=== PATIENT | male | born 1945 | race Caucasian/White ===

== ENCOUNTER 2020-06-01 14:16 | Emergency (ER) | payer OTHER ==
--- OUTSIDE RECORDS SUMMARY | 2020-06-01 14:18 | XMS REPORT | Clinical Summary ---
:1945 Author Organization [facility] Address [address] [place] [address] Care Team Providers Name Role Phone Provider, Unknown Primary Care Provider Unavailable Allergies No Known Allergies Medications Medication Sig Dispensed Refills Start Date End Date Status multivit with 0 Active minerals/lutein (MULTIVITAMIN 50 PLUS ORAL) hydroCHLOROthiazide Take 12.5 mg 0 12/07/2018 Active (MICROZIDE) 12.5 mg capsule by mouth. L. acidophilus-L. rhamnosus 0 Active (PROBIOTIC) 15 billion cell capsule carvedilol (COREG) 6.25 MG 6.25 mg 2 0 01/01/2019 Active tablet (two) times a day with meals. amLODIPine (NORVASC) 10 mg Take 10 mg by 0 Active tablet mouth daily. aspirin (ECOTRIN) 81 MG Take 81 mg by 0 Active enteric coated tablet mouth daily. psyllium husk (METAMUCIL Take by mouth 0 Active ORAL) daily. Active Problems Problem Noted Date Benign localized hyperplasia of prostate with urinary retention 03/26/2019 Encounters Date Type Specialty Care Team Description 08/12/2019 Telephone Urology Giovany Ceballos MD 08/08/2019 Office Visit Urology Giovany Ceballos MD Benign lo calized hyperplasia of prostate with u rinary retention (Primary Dx) after 06/01/2019 Family History Relation Name Status Comments Father Alive Mother Alive Social History Tobacco Use Types Packs/Day Years Used Date Former Smoker Cigarettes Quit: 1979 Smokeless Tobacco: Never Used Alcohol Use Drinks/Week oz/Week Comments Not Currently Sex Assigned at Date Recorded Not on file Job Start Date Occupation Industry Not on file Not on file Not on file Travel History Travel Start Travel End No recent travel history available. Last Filed Vital Signs Not on file Plan of Treatment Health Maintenance Due Date Last Done Comments COLONOSCOPY SCREENING 1996 SHINGLES VACCINES (#1) 1996 65+ PNEUMOCOCCAL VACCINE (1 of 2 - PCV13) 2011 INFLUENZA VACCINE 06/18/2020 07/03/2019 Implants Implanted Type Area Diamond Setter Device Shelf Model / Identifier Expiration Serial / Date Lot Tissue Matrix Placental Liquid Cryomatrix Size 2.0cc - Log21 Human Bilateral: 10/02/2023 [id number] / Implanted: Qty: 1 on 03/26/2019 by Giovany Ceballos MD at [facility] Tissue Pelvis / Implants [id number] Clip Ligtng Hem-O-Katherine Endoscpc Aplr Ply Lg - [id number] Medica l Bilateral: WECK CLOSURE [id number] / Implanted: 03/26/2019 at [facility] (Quantity not on file) Cli ps for Abdomen, SYSTEMS / Internal Lower Use Quadrant Clip Ligtng Hem-O-Katherine Endoscpc Aplr Ply Lg - [id number] Medica l Bilateral: WECK CLOSURE [id number] / Implanted: 03/26/2019 at [facility] (Quantity not on file) Cli ps for Abdomen, SYSTEMS / Internal Lower Use Quadrant Procedures Procedure Name Priority Date/Time Associated Diagnosis Comme nts PSA, TOTAL AND FREE Routine 08/08/2019 10:43 Benign localized Results for this AM 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 TESTOSTERONE LEVEL, Routine 08/08/2019 10:43 Benign localized Results for this FREE AND TOTAL, MALE AM POST TENSIONING IRONWORKER HELPER hyperplasia of proce dure are in prostate with the results urinary retention section. POC UROFLOWMETRY Routine 08/08/2019 10:12 Benign localized Res ults for this AM 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 [id number] Routine 08/08/2019 10:12 Benign localized Results for this AM 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 after 06/01/2019 Results Testosterone level, free and total, male (08/08/2019 10:43 AM POST TENSIONING IRONWORKER HELPER) Testosterone 412 264 - 916 [facility] Comment: ng/dL Adult male reference interval is based on a population of healthy nonobese males (BMI <30) between 19 and 39 yea rs old. Molly et.al. JCEM 2017,102;6304-9399. PMID: 782269 03. Testosterone, free 4.0 (L) 6.6 - 18.1 [facility] 02 pg/mL Specimen Blood Narrative Performed At [facility]formed at[facility] [place], [place] [address] 143 Page Makeup System Operator: Shai Phan MD, Phone: [phone] Performed at: 02 - Lab[address] [id number] Page Makeup System Operator: Ron Arevalo MD, Phone: [phone] Performing Organization Address City/State/Zipcode Phone Number [facility] 02 PSA, total and free (08/08/2019 10:43 AM POST TENSIONING IRONWORKER HELPER) PSA 0.7 0.0 - 4.0 [facility] Comment: ng/mL Rudolph ECLIA methodology. According to the [employer], Seru m PSA should decrease and remain at undetectable levels after radic al prostatectomy. The AUA defines biochemical recurrence as an initial PSA value 0.2 ng/mL or greater followed by a subsequen t confirmatory PSA value 0.2 ng/mL or greater. Values obtained with different assay methods or kits c annot be used interchangeably. Results cannot be interpreted as abso lute evidence of the presence or absence of malignant disease. PSA, free 0.23Comment: Rudolph N/A ng/mL [facility] ECLIA methodology. PSA, free percent 32.9 % [facility] Comment: The table below lists the probability of prostate canc er for men with non-suspicious YIFAN results and total PSA betw een 4 and 10 ng/mL, by patient age (Jamie et al, NIDHI 1 998, 279:1542). % Free PSA 50-64 y r 65-75 yr 0.00-10.00% 56% 55% 10.01-15.00% 24% 35% 15.01-20.00% 17% 23% 20.01-25.00% 10% 20% >25.00% 5% 9% Please note: Jamie et al did not make specific recommendations regarding the use of percent free PSA for any other po pulation of men. Specimen Blood Narrative Performed At [facility]formed at: [facility] [place], [place] [address] 143 Page Makeup System Operator: Shai Phan MD, Phone: [phone] Performing Organization Address City/State/Zipcode Phone Number [facility] POC BLADDER SCAN/PVR (08/08/2019 10:12 AM POST TENSIONING IRONWORKER HELPER) Pathologist Sig nature Volume 122ml Specimen Urine POC uroflowmetry (08/08/2019 10:12 AM POST TENSIONING IRONWORKER HELPER) Pathologist Sig nature Flow rate 41sec ml/sec Specimen Urine Narrative Performed At [facility] Flow: 22 ml/s Mean Flow: 9 ml/s Voiding Time: 41 sec Flow Time: 41 sec Time to Max Flow: 10 sec Voided Volume: 374 ml after 06/01/2019 Advance Directives For more information, please contact: [phone] Type Date Recorded 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
[2020-06-01] MEDS ORDERED: TETANUS & DIPHTHERIA TOX,ADULT 0.5 ML VIAL ONE (15:44)
[2020-06-01] MEDS ORDERED: LIDOCAINE 1% MPF 30 ML VIAL ONE (15:57)
--- NOTE | 2020-06-01 15:59 | RAD REPORT ---
EXAM DESCRIPTION: RAD - Hand Left 3 View - 06/01/2020 3:36 pm CLINICAL HISTORY: table saw injury Trauma, laceration COMPARISON: Hand Left 3 View dated 11/05/2015 FINDINGS: There is no fracture seen. No radiopaque foreign body is identified.
--- NOTE | 2020-06-01 16:20 | ER ---
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 Bleeding controlled. Coronavirus screen: Client denies travel out of the [place] in the last 14 days. At this time, the client does not indicate any symptoms associated with coronavirus-19. Ebola Screen: Patient negative for fever greater than or equal to 101.5 degrees Fahrenheit, and additional compatible Ebola Virus Disease symptoms Patient denies exposure to infectious person. Patient denies travel to an Ebola-affected area in the 21 days before illness onset. No symptoms or risks identified at this time. Complicating Factors: There are no complicating factors for this patient. Initial Sepsis Screen: Does the patient meet any 2 criteria? No. Patient's initial sepsis screen is negative. Does the patient have a suspected source of infection? No. Patient's initial sepsis screen is negative. Risk Assessment: Do you want to hurt yourself or someone else? Patient reports no desire to harm self or others. Onset of symptoms was June 01, 2020. 14:46 Method Of Arrival: Ambulatory ca1 14:46 Acuity: MARICRUZ 4 ca1 Historical: - Allergies: 14:48 No Known Allergies; ca1 - PMHx: 14:48 Hypertension; ca1 - PSHx: 14:48 Cholecystectomy; ca1 - Immunization history:: Adult Immunizations up to date, Last tetanus immunization: unknown. - Social history:: Smoking status: Patient denies any tobacco usage or history of. Screenin:05 Abuse screen: Denies threats or abuse. Nutritional screening: No deficits noted. em Tuberculosis screening: No symptoms or risk factors identified. Fall Risk None identified. Assessment: 15:05 General: Appears in no apparent distress. comfortable, Behavior is calm, cooperative, em appropriate for age. Pain: Complains of pain in palmar aspect of middle phalanx of left middle finger, palmar aspect of proximal phalanx of left index finger and palmar aspect of proximal phalanx of left thumb Pain currently is 3 out of 10 on a pain scale. Neuro: Level of Consciousness is awake, alert, obeys commands, Oriented to person, place, time, situation, Appropriate for age. Cardiovascular: Capillary refill < 3 seconds Patient's skin is warm and dry. Respiratory: Airway is patent Respiratory effort is even, unlabored, Respiratory pattern is regular, symmetrical. Derm: Skin is intact, is healthy with good turgor, Skin is pink, warm \T\ dry. Musculoskeletal: Capillary refill < 3 seconds. Injury Description: Laceration sustained to palmar aspect of middle phalanx of left middle finger, palmar aspect of proximal phalanx of left index finger and palmar aspect of proximal phalanx of left thumb is jagged, 2.6 to 7.5 cm long, bleeding moderately, was sustained 30-60 minutes ago. is bleeding a small amount. Vital Signs: 14:46 BP 124 / 79; Pulse 64; Resp 15 S; Temp 98.5(TE); Pulse Ox 97% on R/A; Weight 84.82 kg ca1 (R); Height 6 ft. 0 in. (182.88 cm) (R); 14:46 Body Mass Index 25.36 (84.82 kg, 182.88 cm) ca1 ED Course: 14:17 Patient arrived in ED. ag5 14:17 Mariana Palacio MD is Private Physician. ag5 14:47 Triage completed. ca1 14:48 Arm band placed on right wrist. ca1 15:05 Patient has correct armband on for positive identification. Bed in low position. Call em light in reach. Pulse ox on. NIBP on. 15:08 Severiano Edmonds, VICKI is Primary Nurse. em 15:31 Thomas Hodges PA is PHCP. jr8 15:31 Bhavesh Byrd MD is Attending Physician. jr8 15:36 Hand Left 3 View XRAY In Process Unspecified. EDMS 16:10 Assist provider with laceration repair on palmar aspect of proximal phalanx of left em index finger and palmar aspect of middle phalanx of left middle finger that was between 2.6 to 7.5 cm using sutures. Set up tray. Performed by Thomas WARD Dressed with 4X4s, Kerlix, Neosporin, Patient tolerated well. 16:19 Markie Funes MD is Referral Physician. jr8 16:30 Patient did not have IV access during this emergency room visit. em Administered Medications: 15:38 Drug: Tetanus-Diphtheria Toxoid Adult 0.5 ml {Tree Puller: Cardiovascular Simulation. Exp: em 11/10/2022. Lot #: [id number]. } Route: IM; Site: right deltoid; 16:29 Follow up: Response: No adverse reaction em Outcome: 16:20 Discharge ordered by . jr8 16:30 Discharged to home ambulatory. em 16:30 Condition: good 16:30 Discharge instructions given to patient, Instructed on discharge instructions, follow up and referral plans. medication usage, wound care, Demonstrated understanding of instructions, follow-up care, medications, wound care, Prescriptions given X 1. 16:31 Patient left the ED. em Signatures: Dispatcher [employer] Severiano Ewing RN RN em Roszak, Josh, PA PA 8 Merary Cruz RN RN [facility]
--- NOTE | 2020-06-01 16:20 | EDPHYS ---
Physician Documentation [facility] Name: Ryamon Petty Jr Age: 74 yrs Sex: Male : 1945 Arrival Date: 06/01/2020 Time: 14:17 Bed 25 Private MD: Mariana Palacio C ED Physician Bhavesh Byrd HPI: 06/01 16:23 This 74 yrs old Male presents to ER via Ambulatory with complaints of jr8 Laceration To Hand. 16:23 The patient has a laceration related to: working, occurred at home. The laceration(s) jr8 is(are) located on the left hand. Onset: The symptoms/episode began/occurred acutely, today. Associated signs and symptoms: The patient has no apparent associated signs or symptoms. The patient has experienced a previous episode. The patient has not recently seen a physician. Patient stated that he was using table saw. Kicked back and caused multiple lacerations to left hand . Historical: - Allergies: 14:48 No Known Allergies; ca1 - PMHx: 14:48 Hypertension; ca1 - PSHx: 14:48 Cholecystectomy; ca1 - Immunization history:: Adult Immunizations up to date, Last tetanus immunization: unknown. - Social history:: Smoking status: Patient denies any tobacco usage or history of. ROS: 16:23 Eyes: Negative for injury, pain, redness, and discharge, ENT: Negative for injury, jr8 pain, and discharge, Neck: Negative for injury, pain, and swelling, Cardiovascular: Negative for chest pain, palpitations, and edema, Respiratory: Negative for shortness of breath, cough, wheezing, and pleuritic chest pain, Abdomen/GI: Negative for abdominal pain, nausea, vomiting, diarrhea, and constipation, Back: Negative for injury and pain, MS/Extremity: Negative for injury and deformity, Neuro: Negative for headache, weakness, numbness, tingling, and seizure. 16:23 Skin: Positive for laceration(s). Exam: 16:23 Constitutional: This is a well developed, well nourished patient who is awake, alert, jr8 and in no acute distress. Cardiovascular: Regular rate and rhythm with a normal S1 and S2. No gallops, murmurs, or rubs. Normal PMI, no JVD. No pulse deficits. Respiratory: Lungs have equal breath sounds bilaterally, clear to auscultation and percussion. No rales, rhonchi or wheezes noted. No increased work of breathing, no retractions or nasal flaring. Skin: Warm, dry with normal turgor. Normal color with no rashes, no lesions, and no evidence of cellulitis. Neuro: Awake and alert, GCS 15, oriented to person, place, time, and situation. Cranial nerves II-XII grossly intact. Motor strength 5/5 in all extremities. Sensory grossly intact. Cerebellar exam normal. Normal gait. 16:23 Musculoskeletal/extremity: Extremities: grossly normal except: noted in the palmar aspect of proximal phalanx of left thumb: approximately 3 cm laceration noted to pad of left thumb. Irregular with skin flap. Both superficial and deep components noted , noted in the palmar aspect of middle phalanx of left middle finger: approximately 3 cm laceration noted to pad of left middle finger alan aspect. Irregular with skin flap. Both superficial and deep components noted , noted in the palmar aspect of proximal phalanx of left index finger: skin tear and superficial laceration noted to the alan aspect of index finger , ROM: intact in all extremities, full active range of motion, full passive range of motion, Circulation is intact in all extremities. Sensation intact. Vital Signs: 14:46 BP 124 / 79; Pulse 64; Resp 15 S; Temp 98.5(TE); Pulse Ox 97% on R/A; Weight 84.82 kg ca1 (R); Height 6 ft. 0 in. (182.88 cm) (R); 14:46 Body Mass Index 25.36 (84.82 kg, 182.88 cm) ca1 Laceration: 16:21 Wound Repair of 3cm ( 1.2in ) subcutaneous laceration to palmar aspect of proximal jr8 phalanx of left thumb. Irregularly shaped.. Skin/tissue flap noted.. Minimal bleeding noted.. Distal neuro/vascular/tendon intact. Anesthesia: Local anesthetic administered with 1 mls of 1% lidocaine. Wound prep: Extensive cleansing with betadine, Wound irrigation with saline, Wound explored extensively. Skin closed with 3 4-0 Prolene using interrupted sutures and sterile technique. Patient tolerated well. 16:21 Wound Repair of 3cm ( 1.2in ) subcutaneous laceration to palmar aspect of middle jr8 phalanx of left middle finger. Irregularly shaped.. Skin/tissue flap noted.. Minimal bleeding noted.. Distal neuro/vascular/tendon intact. Anesthesia: Local anesthetic administered with 2 mls of 1% lidocaine. Wound prep: Extensive cleansing with betadine, Wound irrigation with saline, Wound explored extensively. Skin closed with 3 4-0 Prolene using interrupted sutures and sterile technique. Patient tolerated well. MDM: 15:31 Patient medically screened. jr8 16:18 Data reviewed: vital signs, nurses notes, radiologic studies, plain films, and as a jr8 result, I will discharge patient. Data interpreted: Pulse oximetry: on room air is 97 %. Interpretation: normal. Counseling: I had a detailed discussion with the patient and/or guardian regarding: the historical points, exam findings, and any diagnostic results supporting the discharge/admit diagnosis, radiology results, the need for outpatient follow up, a hand specialist, to return to the emergency department if symptoms worsen or persist or if there are any questions or concerns that arise at home. 06/01 15:10 Order name: Hand Left 3 View XRAY; Complete Time: 16:18 em Administered Medications: 15:38 Drug: Tetanus-Diphtheria Toxoid Adult 0.5 ml {Fractionating Still Operator: SmallRivers. Exp: em 11/10/2022. Lot #: [id number]. } Route: IM; Site: right deltoid; 16:29 Follow up: Response: No adverse reaction em Disposition: 06/02 08:22 Co-signature as Attending Physician, Bhavesh Byrd MD I agree with the assessment and nga plan of care. Disposition: 06/01/20 16:20 Discharged to Home. Impression: Laceration without foreign body of finger without damage to nail. - Condition is Stable. - Discharge Instructions: Laceration Care, Adult. - Prescriptions for Keflex 500 mg Oral Capsule - take 1 capsule by ORAL route every 6 hours for 7 days; 28 capsule. - Medication Reconciliation Form, Thank You Letter, Antibiotic Education, Prescription Opioid Use form. - Follow up: Markie Funes MD; When: 2 - 3 days; Reason: Wound Recheck, Recheck today's complaints, Continuance of care, Re-evaluation by your physician. - Problem is new. - Symptoms have improved. Signatures: Dispatcher [employer] Bhavesh Magana MD MD cha Munoz, Edgar, RN RN em Thomas Hodges PA PA jr8 Merary Cruz RN RN ca1 Corrections: (The following items were deleted from the chart) 06/01 16:31 16:20 06/01/2020 16:20 Discharged to Home. Impression: Laceration without foreign body em of finger without damage to nail. Condition is Stable. Forms are Medication Reconciliation Form, Thank You Letter, Antibiotic Education, Prescription Opioid Use. Follow up: Markie Funes; When: 2 - 3 days; Reason: Wound Recheck, Recheck today's complaints, Continuance of care, Re-evaluation by your physician. Problem is new. Symptoms have improved. jr8
[2020-06-01 16:45] VITALS: BP 124/79; TEMP 98.5; O2SAT 97
== END 2020-06-01 16:31 | disposition home or self-care (01) ==
LOC: ER 14:16
PROC: 0JQK0ZZ Repair Left Hand Subcutaneous Tissue and Fascia, Open Approach (ICD-10-PCS; principal; 2020-06-01)
DX: S61.213A Laceration without foreign body of left middle finger without damage to nail, initial encounter (principal); W31.2XXA Contact with powered woodworking and forming machines, initial encounter; Y93.89 Activity, other specified; Y92.009 Unspecified place in unspecified non-institutional (private) residence as the place of occurrence of the external cause; Z23 Encounter for immunization; I10 Essential (primary) hypertension
CPT/HCPCS: 90471; 90714; 99284

== ENCOUNTER 2020-06-04 08:25 | Day surgery (SDC) | payer OTHER ==
[2020-06-04 08:13] LABS: Absolute Lymphocytes (CBC) 0.7 K/uL (0.7-4.9); Basophils % 0.4 % (0-1.3); Hematocrit 39.6 % (39.6-49.0); Lymphocytes % 17.7 % (15.3-44.8); MPV 9.1 fL (7.6-11.3); RBC Red Blood Cell Count 4.15 M/uL (4.33-5.43)
[2020-06-04] MEDS ORDERED: Ringers Lactate 1,000 ML IV ONE (08:50)
[2020-06-04] MEDS ORDERED: CEFAZOLIN/SWI 1gm 1 GM/10 ML SYR ONE (08:51)
--- NOTE | 2020-06-04 08:52 | RAD REPORT ---
EXAM DESCRIPTION: RAD - Chest Pa And Lat (2 Views) - 06/04/2020 8:30 am CLINICAL HISTORY: preop Chest pain. COMPARISON: No comparisons FINDINGS: The lungs are clear. The heart is normal in size. No displaced fractures. IMPRESSION: No acute or concerning finding suspected.
[2020-06-04 08:58] VITALS: O2SAT 100
[2020-06-04] MEDS ORDERED: propofoL 200 MG/20 ML VIAL IV ONE (09:24)
[2020-06-04] MEDS ORDERED: FENTANYL CITR 100 MCG/2 ML ONE ×2 (09:24→10:14)
[2020-06-04] MEDS ORDERED: LIDOCAINE 2% MPF 5 ML VIAL ONE (09:25)
[2020-06-04] MEDS ORDERED: ONDANSETRON 4 MG/2 ML VIAL ONE ×2 (09:25→11:11)
--- OUTSIDE RECORDS SUMMARY | 2020-06-04 09:25 | XMS REPORT | Clinical Summary ---
:1945 Author Organization [facility] Address [address] [place] [address] Care Team Providers Name Role Phone Provider, [...] with u rinary retention (Primary Dx) after 06/04/2019 Family History Relation Name Status Comments Father [...] of 2 - PCV13) 2011 INFLUENZA VACCINE 05/19/2020 07/03/2019 Implants Implanted Type Area Software Engineering Specialist Device Shelf Model / Identifier Expiration Serial / Date Lot Tissue Matrix Placental Liquid Cryomatrix Size 2.0cc - [id number] Human Bilateral: 10/02/2023 [id number] / Implanted: Qty: 1 on 03/26/2019 by Giovany Ceballos MD at [facility] Tissue Pelvis / Implants [id number] Clip Ligtng Hem-O-Katherine Endoscpc Aplr Ply Lg - [id number] Medica l Bilateral: WECK CLOSURE [id number] / Implanted: 03/26/2019 at [facility] (Quantity not on file) Cli ps for Abdomen, SYSTEMS / Internal Lower Use Quadrant Clip Ligtng Hem-O-Katherine Endoscpc Aplr Ply Lg - [id number] Medica l Bilateral: WECK CLOSURE [id number] / Implanted: 03/26/2019 at [facility] (Quantity not on file) Cli ps for Abdomen, SYSTEMS / Internal Lower Use Quadrant Procedures Procedure Name Priority Date/Time Associated Diagnosis Comme nts PSA, TOTAL AND FREE Routine 08/08/2019 10:43 Benign localized Results for this AM ZIPPER TRIMMER hyperplasia of procedure are in prostate with the results urinary retention section. TESTOSTERONE LEVEL, Routine 08/08/2019 10:43 Benign localized Results for this FREE AND TOTAL, MALE AM ZIPPER TRIMMER hyperplasia of proce dure are in prostate with the results urinary retention section. POC UROFLOWMETRY Routine 08/08/2019 10:12 Benign localized Res ults for this AM ZIPPER TRIMMER hyperplasia of procedure are in prostate with the results urinary retention section. [id number] Routine 08/08/2019 10:12 Benign localized Results for this AM ZIPPER TRIMMER hyperplasia of procedure are in prostate with the results urinary retention section. after 06/04/2019 Results Testosterone level, free and total, male (08/08/2019 10:43 AM ZIPPER TRIMMER) Testosterone 412 264 - 916 [facility] Comment: ng/dL Adult male reference interval is based on a population of healthy nonobese males (BMI <30) between 19 and 39 yea rs old. Molly et.al. JCEM 2017,102;5018-6304. PMID: 258764 03. Testosterone, free 4.0 (L) 6.6 - 18.1 [facility] 02 pg/mL Specimen Blood Narrative Performed At [facility]: [facility] [place], [place] [address] 143 Power Shear Operator: Shai Phan MD, Phone: [phone] Performed at: 02 - Lab[address] [id number] 361 Power Shear Operator: Ron Arevalo MD, Phone: [phone] Performing Organization Address City/State/Zipcode Phone Number [facility] 02 PSA, total and free (08/08/2019 10:43 AM ZIPPER TRIMMER) PSA 0.7 0.0 - 4.0 [facility] Comment: ng/mL Rudolph ECLIA methodology. According to the [place] [employer], Seru m PSA should decrease [...] Blood Narrative Performed At [facility]formed at: [facility] [place], [place] [address] 143 Power Shear Operator: Shai Phan MD, Phone: [phone] Performing Organization Address City/State/Zipcode Phone Number [facility] POC BLADDER SCAN/PVR (08/08/2019 10:12 AM ZIPPER TRIMMER) Pathologist Sig nature Volume 122ml Specimen Urine POC uroflowmetry (08/08/2019 10:12 AM ZIPPER TRIMMER) Pathologist Sig nature Flow rate 41sec ml/sec Specimen Urine Narrative Performed At [facility]: 22 ml/s Mean Flow: 9 ml/s Voiding Time: 41 sec Flow Time: 41 sec Time to Max Flow: 10 sec Voided Volume: 374 ml after 06/04/2019 Advance Directives For more information, please contact: [phone] Type Date Recorded 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
[2020-06-04] MEDS ORDERED: GLYCOPYRROLATE 0.2 MG/ML SYR ONE ×2 (09:47→10:05)
[2020-06-04] MEDS ORDERED: EPHEDRINE SULF 50 MG/ML VIAL ONE (09:50)
[2020-06-04] MEDS ORDERED: HYDROMORPHONE HCL 1 MG/ML INJ ONE (11:12)
--- NOTE | 2020-06-04 11:42 | OP ---
Surgeon: Markie Funes MD Preoperative Diagnosis: Table saw laceration of thumb, index and middle fingers of the left hand. Postoperative Diagnosis: Table saw laceration of thumb, index and middle fingers of the left hand wi th laceration of ulnar digital nerve of the middle finger. Procedure Performed: Debridement of skin and subcu tissue of the thumb, index and middle, flap advan cement closure of the thumb, index, middle, microscopic dissection and repair of ulnar digital nerve of the middle finger, splint of left middle finger. Anesthesia: General. Procedure In Detail: After satisfactory induction of general anesthesia, left hand was prepped with Betadine scrub, Betadine paint, dry sterile drapes applied in usual manner. Arm was elevated, exsang uinated with an Esmarch, tourniquet inflated to 250 mmHg. Hand was placed on [place] table. A scalp el was used to debride skin and subcu tissue of the thumb, index and middle finger, the laceration ov er the volar surface of the distal phalanx or near the distal junction. The laceration of the thumb was down into the digital artery was lacerated, but was not significant and did not repair. The wound was irrigated with saline. The middle finger laceration was more superficial . Edges were debrided and wound was irrigated. Worse first finger was the middle finger. The ulnar aspect had laceration down too but not involving the flexor tendons. The digital arteries are trans ected. The nerve was identified proximally and distally after proximal was made in the wo und repair with 9-0 nylon suture. Tourniquet was released. Then the wounds were closed w ith 4-0 Prolene simple sutures. Advancing the flaps to close them. Dressed with Xeroform, 2 inch Kl ing over the thumb, index, middle. Splint was applied over the middle finger DIP with about 30 degrees flexion. The patient tolerated procedure well and returned t o Recovery. RUCHI/MODL Voice ID: [id number] Report ID: [id number]
[2020-06-04] MEDS ORDERED: CODEINE 30MG/APAP 300MG TAB ONE (11:54)
[2020-06-04 12:57] VITALS: BP 165/72; TEMP 97.4
== END 2020-06-04 12:50 | disposition home or self-care (01) ==
LOC: OR 08:25
PROVIDERS: ATTEND Specialist
PROC: 01Q40ZZ Repair Ulnar Nerve, Open Approach (ICD-10-PCS; principal; 2020-06-04 09:00)
DX: S61.012A Laceration without foreign body of left thumb without damage to nail, initial encounter (principal); S61.211A Laceration without foreign body of left index finger without damage to nail, initial encounter; S61.213A Laceration without foreign body of left middle finger without damage to nail, initial encounter; S64.493A Injury of digital nerve of left middle finger, initial encounter; Z20.828 Contact with and (suspected) exposure to other viral communicable diseases
CPT/HCPCS: 12002; 93005; 85025; 36415; 88304; 71046; 64831; U0002; J2704; J3010 ×2; J1170; J0690; J7120; J2405 ×2